=== PATIENT | male | born 1990 | race Caucasian/White ===

== ENCOUNTER 2016-12-08 15:52 | Emergency (ER) | payer BC, OTHER ==
[~2016-12-08] VITALS: Ht 177.8 cm; Wt 72.6 kg
[2016-12-08] MEDS ORDERED: IV SET PRIMARY PUMP SET 1 EA INFUS.SET MC ONE (16:00)
[2016-12-08] MEDS ORDERED: IV NS 0.9% 1,000 ML BAG IV ONE (16:00)
[2016-12-08] MEDS ORDERED: IV NS 0.9% 1,000 ML ONE (16:00)
--- NOTE | 2016-12-08 16:02 | NUR ---
PT BBRA FROM HOME: OVERDOSED ON XANAX, PER PATIENT SI+. BS FIELD IN 81. PLACED ON MONITOR. GOWNED PT. PT AWAKE ALERT BUT LETHARGIC. PLACED ON HARD RESTRAINTS PER DR SERRANO. PT REMOVED IV LINES. OTHER MEASURES INEFFECTIVE. AWAITING MD ORDER
--- NOTE | 2016-12-08 16:04 | NUR ---
DR SERRANO AT BEDSIDE FOR EVAL
--- NOTE | 2016-12-08 16:10 | NUR ---
EKG IN PROGRESS
--- NOTE | 2016-12-08 16:10 | NUR ---
LAC #16 IV ACCESS. BLOOD SAMPLE COLLECTED SENT TO LAB
[2016-12-08] MEDS ORDERED: diphenhydrAMINE HCL 50 MG/ML VIAL ONE (16:13)
[2016-12-08] MEDS ORDERED: HALOPERIDOL LACTATE INJ 5 MG/ML VIAL ONE (16:14)
--- NOTE | 2016-12-08 16:15 | NUR ---
URINE SAMPLE COLLECTED SENT TO LAB
[2016-12-08 16:22] LABS: BASOPHILS # (AUTO) 0.1 /CMM (0.0-0.2); BASOPHILS % (AUTO) 0.8 % (0.0-2.0); EOSINOPHILS # (AUTO) 0.2 /CMM (0.0-0.7); EOSINOPHILS % (AUTO) 2.8 % (0.0-6.0); HEMATOCRIT 49 % (39-51); HEMOGLOBIN 16.7 g/dL (13.5-17.5); LYMPHOCYTES # (AUTO) 1.6 /CMM (0.8-4.8); LYMPHOCYTES % (AUTO) 24.6 % (20.0-44.0); MEAN CORPUSCULAR HEMOGLOBIN 30 PG (26.0-33.0); MEAN CORPUSCULAR HGB CONC 35 g/dl (31.0-36.0); MEAN CORPUSCULAR VOLUME 87 fL (80-96); MONOCYTES # (AUTO) 0.5 /CMM (0.1-1.30); MONOCYTES % (AUTO) 7.6 % (2.0-12.0); NEUTROPHILS # (AUTO) 3.9 /CMM (1.8-8.9); NEUTROPHILS % (AUTO) 64.2 % (43.0-81.0); PLATELET COUNT (AUTO) 245 /CMM (150-450); RDW COEFFICIENT OF VARIATION 11.6 (11.5-15.0); RED BLOOD CELL COUNT(AUTO) 5.58 MIL/uL (4.5-6.0); WHITE BLOOD COUNT (AUTO) 6.3 K/uL (4.3-11.0)
[2016-12-08] MEDS ORDERED: diphenhydrAMINE HCL 50 MG/ML VIAL IM ONE (16:30)
[2016-12-08] MEDS ORDERED: HALOPERIDOL LACTATE INJ 5 MG/ML VIAL IM ONE (16:30)
[2016-12-08 16:36] LABS: CALCIUM, SERUM 9.1 mg/dL (8.5-10.1); CARBON DIOXIDE 32 mmol/L (21-32); CHLORIDE 106 mmol/L (98-107); GFR 91 mL/min (>60); GLUCOSE 92 mg/dL (74-106); POTASSIUM 4.5 mmol/L (3.5-5.1); SODIUM SERUM 143 mmol/L (136-145); UREA NITROGEN, BLOOD 11 mg/dL (7-18)
--- NOTE | 2016-12-08 16:37 | NUR ---
FATHER, ADIA BONILLA: [phone] STEP-MOTHER, KATE METZGER: [phone]
[2016-12-08 16:43] LABS: ALANINE AMINOTRANSFERASE 90 U/L (12-78); ALBUMIN 4.3 g/dL (3.4-5.0); ALKALINE PHOSPHATASE 73 U/L (46-116); ASPARTATE AMINOTRANSFERASE 33 U/L (15-37); BILIRUBIN,DIRECT 0.2 mg/dL (0.0-0.2); BILIRUBIN,TOTAL 1.2 mg/dL (0.2-1.0); TOTAL PROTEIN, SERUM 7.5 g/dL (6.4-8.2)
[2016-12-08 16:44] LABS: ACETAMINOPHEN 0 ug/ml (10-30); ALCOHOL, BLOOD < 3 mg/dL (0-0); SALICYLATE 1.7 mg/dL (2.8-20.0)
[2016-12-08 16:48] LABS: CANNABINOID, URINE POSITIVE (NEGATIVE); PHENCYCLIDINE SCREEN,URINE NEGATIVE (NEGATIVE)
--- NOTE | 2016-12-08 19:00 | NUR ---
JOSH DEGROOT, MOTHER,
--- NOTE | 2016-12-08 19:04 | NUR ---
RECEIVED REPORT FROM FEDERICO KELLY FOR CONTINUE OF CARE.
--- NOTE | 2016-12-08 19:07 | NUR ---
REPORT GIVEN TO GUMARO CABALLERO FOR RIRI
--- NOTE | 2016-12-09 | NUR ---
Patient is resting comfortably in bed with eyes closed. Easily aroused. VSS
--- NOTE | 2016-12-09 07:13 | NUR ---
REPORT GIVEN TO FEDERICO KELLY FOR CONTINUE OF CARE.
--- NOTE | 2016-12-09 07:30 | NUR ---
RECEIVED REPORT FROM GUMARO FOR RIRI
--- NOTE | 2016-12-09 07:45 | NUR ---
PT IN BED RESTING COMFORTABLY EASILY AROUSABLE TO CALL OF NAME. DENIES ANY PAIN. VSS. WILL CONTINUE TO MONITOR.
--- NOTE | 2016-12-09 09:55 | NUR ---
DE ESTRADA [phone] ETA 60MINS
--- NOTE | 2016-12-09 10:45 | NUR ---
JOSH AT BEDSIDE FOR PSYCH EVAL
--- NOTE | 2016-12-09 11:16 | NUR ---
REPORT RECEIVED FROM ROBIN CABALLERO FOR RIRI
--- NOTE | 2016-12-09 12:18 | NUR ---
RESTING QUIETLY, NAD NOTED. VSS.
--- NOTE | 2016-12-09 14:31 | NUR ---
ACCEPTED TO 2W BED #253-B AT [facility] RN REPORT # [phone]
--- NOTE | 2016-12-09 14:57 | NUR ---
CALLED [facility] FOR TRANPSORT ETA 20 MINUTES
--- NOTE | 2016-12-09 15:40 | NUR ---
ambulated to restroom with steady gait.
--- NOTE | 2016-12-09 15:45 | NUR ---
report given to tati stauffer for transfer to [facility]
[2016-12-09 15:56] VITALS: BP 115/76
--- NOTE | 2016-12-09 15:56 | NUR ---
IV removed. Catheter intact and site benign. Pressure and 4x4 applied to site. No bleeding noted. PT TRANSFERRED TO [facility] IN STABLE CONDITION VIA [facility]
== END 2016-12-09 15:58 ==
LOC: ER 15:58
DX: R45.851 Suicidal ideations (principal); T42.4X1A Poisoning by benzodiazepines, accidental (unintentional), initial encounter; F32.9 Major depressive disorder, single episode, unspecified; F41.9 Anxiety disorder, unspecified; Y92.89 Other specified places as the place of occurrence of the external cause
CPT/HCPCS: 36415; 80048; 80076; 80305; 80329; 85025; 93005; 96360; 96372 ×2; 99285; A4606; G0480 ×2; J1200; J1630; J7030; Z7610; G6039-TC